=== PATIENT | male | born 1995 | race Hispanic/Latino ===

== ENCOUNTER 2018-01-20 15:43 | Emergency (ER) | payer SELFPAY ==
[2018-01-20 16:59] LABS: Bicarbonate 25 mEq/L (21-31); Glucose Level 113 mg/dL (65-120); Lipase 16 U/L (22-51); Potassium 3.8 mEq/L (3.6-5.0); Sodium Level 136 mEq/L (135-145)
--- NOTE | 2018-01-20 17:00 | RAD REPORT ---
EXAM DESCRIPTION: CT - Abdomen Pelvis W Contrast - 01/20/2018 4:51 pm COMPARISON: None. TECHNIQUE: Biphasic, helical CT imaging of the abdomen and pelvis was performed following 100 ml non -ionic IV contrast. No oral contrast administered. All CT scans are performed using dose optimization technique as appropriate and may include automated exposure control or mA/KV adjustment according to patient size. FINDINGS: No suspicious findings in the lung bases. The liver, spleen, and pancreas show no suspicious findings. Gallbladder and biliary tree are also wi thout suspicious finding. Symmetric renal function is seen with no hydronephrosis or suspicious renal mass. No pyelonephritis o r acute renal parenchymal process. Urinary bladder is mostly contracted. No bladder calculi seen. Pro state gland and seminal vesicles normal range. No dilated bowel loops or bowel wall thickening. Moderate stool in the ascending colon and cecum. Rem ainder the colon is decompressed. Appendix is normal. No free air, free fluid or inflammatory strandi ng. Minimal fat only umbilical hernia present. No mass or lymphadenopathy. No adrenal abnormality. No suspicious bony findings. IMPRESSION: Contrast enhanced CT abdomen and pelvis showing no significant or suspicious finding.
[2018-01-20 17:02] LABS: Absolute Lymphocytes (CBC) 1.5 K/uL (0.7-4.9); Absolute Monocytes 0.6 K/uL (0.1-1.3); Absolute Neutrophil 7.1 K/uL (1.8-8.0); Basophils % 0.5 % (0-1.3); Eosinophils % 0.6 % (0-4.4); Hematocrit 48.8 % (39.6-49.0); Lymphocytes % 16.6 % (15.3-44.8); MCH 28.9 pg (27.0-35.0); MCV 85.6 fL (80-100); MPV 7.7 fL (7.6-11.3); Monocytes % 6.7 % (3.3-12.3)
[2018-01-20 17:06] LABS: ALT/SGPT 18 IU/L (10-60); AST/SGOT 20 IU/L (10-42); Albumin 4.9 g/dL (3.2-5.5); Alkaline Phosphatase 56 IU/L (42-121); Amylase Level 46 U/L (28-100); BUN Blood Urea Nitrogen 11 mg/dL (6-20); Bilirubin Direct 0.1 mg/dL (0-0.2); Bilirubin Total 1.7 mg/dL (0.3-1.2); Protein, Total 8.6 g/dL (6.0-8.3)
--- NOTE | 2018-01-20 17:11 | ER ---
Nurse's Notes [facility] Name: Kelvin Tamayo Age: 22 yrs Sex: Male : 1995 Arrival Date: 01/20/2018 Time: 15:47 Bed 6 Private MD: None, None Diagnosis: Noninfective gastroenteritis and colitis, unspecified Presentation: 01/20 15:56 Presenting complaint: Patient states: Lower abdominal pain since this AM with small aj amount of bright red blood in stool, with mucus. Transition of care: patient was not received from another setting of care. Onset of symptoms was January 20, 2018. Risk Assessment: Do you want to hurt yourself or someone else? Patient reports no desire to harm self or others. Care prior to arrival: None. 15:56 Method Of Arrival: Ambulatory aj 15:56 Acuity: STEVE 3 aj 16:50 Initial Sepsis Screen: Does the patient meet any 2 criteria? No. Patient's initial jl7 sepsis screen is negative. Does the patient have a suspected source of infection? No. Patient's initial sepsis screen is negative. Triage Assessment: 15:57 General: Appears in no apparent distress. comfortable, Behavior is calm, cooperative, aj appropriate for age. Pain: Complains of pain in right lower quadrant and left lower quadrant Pain currently is 7 out of 10 on a pain scale. Neuro: Level of Consciousness is awake, alert, obeys commands, Oriented to person, place, time, situation, Appropriate for age. Respiratory: Airway is patent Respiratory effort is even, unlabored, Respiratory pattern is regular, symmetrical. GI: Reports lower abdominal pain, bloody stool, nausea. Derm: Skin is intact, is healthy with good turgor, Skin is pink, warm \T\ dry. normal. Historical: - Allergies: 15:57 No Known Allergies; aj - Home Meds: 15:57 None [Active]; aj - PMHx: 15:57 None; aj - PSHx: 15:57 None; aj - Immunization history:: Adult Immunizations up to date. - Social history:: Smoking status: Patient/guardian denies using tobacco, Patient/guardian denies using alcohol, street drugs, Patient/guardian denies using The patient lives with family. - Family history:: not pertinent. - Ebola Screening: : No symptoms or risks identified at this time. Screenin:11 Abuse screen: Denies threats or abuse. Denies injuries from another. Nutritional jl7 screening: No deficits noted. Tuberculosis screening: No symptoms or risk factors identified. Fall Risk None identified. Assessment: 16:11 General: Appears in no apparent distress. uncomfortable, Behavior is calm, cooperative, jl7 appropriate for age. Pain: Complains of pain in right lower quadrant and left lower quadrant Pain does not radiate. Pain currently is 7 out of 10 on a pain scale. at worst was 10 out of 10 on a pain scale. Quality of pain is described as crampy, pressure, Pain began 0600 today Is continuous. Neuro: Level of Consciousness is awake, alert, obeys commands, Oriented to person, place, time, situation. Cardiovascular: Patient's skin is warm and dry. Respiratory: Airway is patent Respiratory effort is even, unlabored, Respiratory pattern is regular, symmetrical. GI: Last BM was January 20, 2018. Bowel sounds hypoactive in right upper quadrant, left upper quadrant, right lower quadrant and left lower quadrant Abd is soft X 4 quads Abd is non tender in right upper quadrant and left upper quadrant Abdomen is tender to palpation in right lower quadrant and left lower quadrant. : No signs and/or symptoms were reported regarding the genitourinary system. EENT: No signs and/or symptoms were reported regarding the EENT system. Derm: Skin is pink, warm \T\ dry. 17:00 Reassessment: No changes from previously documented assessment. Patient and/or family jl7 updated on plan of care and expected duration. Pain level reassessed. Patient is alert, oriented x 3, equal unlabored respirations, skin warm/dry/pink. Vital Signs: 15:57 BP 131 / 70; Pulse 77; Resp 16; Temp 97.9; Pulse Ox 99% on R/A; Weight 106.59 kg; aj Height 6 ft. 0 in. (182.88 cm); Pain 7/10; 17:00 BP 128 / 75; Pulse 75; Resp 16; Pulse Ox 99% ; jl7 15:57 Body Mass Index 31.87 (106.59 kg, 182.88 cm) aj ED Course: 15:47 Patient arrived in ED. mr 15:47 None, None is Private Physician. mr 15:57 Triage completed. aj 15:57 Arm band placed on left wrist. Patient placed in an exam room. aj 16:00 Bimal Hayes, RN is Primary Nurse. ae1 16:02 Manuel Smith MD is Attending Physician. ma2 16:11 Primary Nurse role handed off by Bimal Hayes RN jl7 16:11 Zehra Mcleod RN is Primary Nurse. jl7 16:11 Patient has correct armband on for positive identification. Placed in gown. Bed in low jl7 position. Call light in reach. Side rails up X 1. 16:40 Initial lab(s) drawn, by me, sent to lab. Inserted saline lock: 20 gauge in right jl7 antecubital area, using aseptic technique. Blood collected. 16:50 CT completed. Patient moved to CT via wheelchair. Patient moved back from CT. cw1 16:51 CT Abd/Pelvis - W/Contrast In Process Unspecified. EDMS 17:24 No provider procedures requiring assistance completed. IV discontinued, intact, jl7 bleeding controlled, No redness/swelling at site. Pressure dressing applied. Administered Medications: No medications were administered Outcome: 17:11 Discharge ordered by . ma2 17:24 Discharged to home ambulatory. jl7 17:24 Condition: stable 17:24 Discharge instructions given to patient, family, Instructed on discharge instructions, follow up and referral plans. medication usage, Demonstrated understanding of instructions, follow-up care, medications, Prescriptions given X 2. 17:25 Patient left the ED. jl7 Signatures: Dispatcher [employer] EDMS Angy Barraza RN RN aj Rivera, Maria mr Lundberg, Sophie cw1 Bimal Hayes, ASHLI CORNELIUS ae1 Zehra Mcleod RN RN jl7 Manuel Smith MD [facility]
--- NOTE | 2018-01-20 17:11 | EDPHYS ---
Physician Documentation [facility] Name: Kelvin Tamayo Age: 22 yrs Sex: Male : 1995 Arrival Date: 01/20/2018 Time: 15:47 Bed 6 Private MD: None, None ED Physician Manuel Smith HPI: 01/20 16:24 This 22 yrs old Male presents to ER via Ambulatory with complaints of ma2 Abdominal Pain, Rectal Bleeding. 16:24 The patient presents to the emergency department with bleeding from the rectum/anus. ma2 The patient presents to the emergency department with bleeding from the rectum/anus, that is mild. Onset: The symptoms/episode began/occurred suddenly. Onset: The symptoms/episode began/occurred gradually, 1 day(s) ago. Modifying factors: The symptoms are alleviated by The symptoms are aggravated by. Associate signs and symptoms: Pertinent positives: abdominal pain in the right lower quadrant and left lower quadrant, Pertinent negatives: constipation, diarrhea, dysuria, vomiting. The patient has not experienced similar symptoms in the past. Historical: - Allergies: 15:57 No Known Allergies; aj - Home Meds: 15:57 None [Active]; aj - PMHx: 15:57 None; aj - PSHx: 15:57 None; aj - Immunization history:: Adult Immunizations up to date. - Social history:: Smoking status: Patient/guardian denies using tobacco, Patient/guardian denies using alcohol, street drugs, Patient/guardian denies using The patient lives with family. - Family history:: not pertinent. - Ebola Screening: : No symptoms or risks identified at this time. ROS: 16:24 Abdomen/GI: Positive for abdominal pain. ma2 16:24 All other systems are negative. Exam: 16:24 Constitutional: This is a well developed, well nourished patient who is awake, alert, ma2 and in no acute distress. Head/Face: Normocephalic, atraumatic. Neck: Trachea midline, no thyromegaly or masses palpated, and no cervical lymphadenopathy. Supple, full range of motion without nuchal rigidity, or vertebral point tenderness. No Meningismus. Chest/axilla: Normal chest wall appearance and motion. Nontender with no deformity. No lesions are appreciated. Cardiovascular: Regular rate and rhythm with a normal S1 and S2. No gallops, murmurs, or rubs. Normal PMI, no JVD. No pulse deficits. Respiratory: Lungs have equal breath sounds bilaterally, clear to auscultation and percussion. No rales, rhonchi or wheezes noted. No increased work of breathing, no retractions or nasal flaring. 16:24 Abdomen/GI: Palpation: moderate abdominal tenderness, in the right lower quadrant and left lower quadrant. 16:24 Back: No spinal tenderness. No costovertebral tenderness. Full range of motion. Male ma2 : Normal genitalia with no discharge or lesions. MS/ Extremity: Pulses equal, no cyanosis. Neurovascular intact. Full, normal range of motion. Neuro: Awake and alert, GCS 15, oriented to person, place, time, and situation. Cranial nerves II-XII grossly intact. Motor strength 5/5 in all extremities. Sensory grossly intact. Cerebellar exam normal. Normal gait. Psych: Awake, alert, with orientation to person, place and time. Behavior, mood, and affect are within normal limits. Vital Signs: 15:57 BP 131 / 70; Pulse 77; Resp 16; Temp 97.9; Pulse Ox 99% on R/A; Weight 106.59 kg; aj Height 6 ft. 0 in. (182.88 cm); Pain 7/10; 17:00 BP 128 / 75; Pulse 75; Resp 16; Pulse Ox 99% ; jl7 15:57 Body Mass Index 31.87 (106.59 kg, 182.88 cm) aj MDM: 16:02 Patient medically screened. [facility] 16:24 Differential diagnosis:. [facility] 16:24 Differential diagnosis: colitis, internal hemorrhoid, GE, appendicitis. [facility] 17:08 Data reviewed: vital signs, nurses notes, diagnostic data from outside facility, old [facility] medical records, EKG. 17:09 Counseling: I had a detailed discussion with the patient and/or guardian regarding: the [facility] historical points, exam findings, and any diagnostic results supporting the discharge/admit diagnosis, the presence of at least one elevated blood pressure reading (>120/80) during this emergency department visit, the need for outpatient follow up. Response to treatment: the patient's symptoms have mildly improved after treatment. 01/20 16:24 Order name: Amylase, Serum; Complete Time: 17:08 ma01/20 16:24 Order name: Basic Metabolic Panel; Complete Time: 17:08 la01/20 16:24 Order name: CBC with Diff; Complete Time: 17: la01/20 16:24 Order name: Creatinine for Radiology; Complete Time: 17: la01/20 16:24 Order name: Hepatic Function; Complete Time: 17:08 [facility] 01/20 16:24 Order name: Lipase; Complete Time: 17: [facility] 01/20 16:24 Order name: IV Saline Lock; Complete Time: 16:50 01/20 16:24 Order name: Labs collected and sent; Complete Time: 16:50 la01/20 16:24 Order name: CT Abd/Pelvis - W/Contrast; Complete Time: 17: Administered Medications: No medications were administered Disposition: 01/20/18 17:11 Discharged to Home. Impression: Noninfective gastroenteritis and colitis, unspecified. - Condition is Stable. - Discharge Instructions: Gastrointestinal Bleeding. - Prescriptions for Flagyl 500 mg Oral Tablet - take 1 tablet by ORAL route every 12 hours for 7 days; 14 tablet. Pepcid 20 mg Oral Tablet - take 1 tablet by ORAL route once daily for 10 days; 10 tablet. - Medication Reconciliation Form, Thank You Letter, Antibiotic Education, Prescription Opioid Use form. - Follow up: Private Physician; When: Tomorrow; Reason: Continuance of care. - Problem is new. - Symptoms have improved. Signatures: Dispatcher [employer] EDAngy Madrid RN RN aj Leal, Jahala, RN RN jl7 Manuel Smith MD MD ma2 Corrections: (The following items were deleted from the chart) 17:25 17:11 01/20/2018 17:11 Discharged to Home. Impression: Noninfective gastroenteritis and jl7 colitis, unspecified. Condition is Stable. Forms are Medication Reconciliation Form, Thank You Letter, Antibiotic Education, Prescription Opioid Use. Follow up: Private Physician; When: Tomorrow; Reason: Continuance of care. Problem is new. Symptoms have improved. ma2
== END 2018-01-20 17:25 | disposition home or self-care (01) ==
LOC: ER 15:43
DX: K52.9 Noninfective gastroenteritis and colitis, unspecified (principal)
CPT/HCPCS: 36415; 74177; 80048; 80076; 82150; 83690; 85025; 99284; Q9967